=== PATIENT | female | born 1950 | race Caucasian/White ===

== ENCOUNTER 2020-10-28 11:55 | Outpatient (CLI) | payer OTHER | END 2020-10-28 23:59 | disposition home or self-care (01) | LOC: LAB 11:55 | PROVIDERS: ATTEND Student in an Organized Health Care Education/Training Program | DX: Z01.812 Encounter for preprocedural laboratory examination (principal); Z20.822 Contact with and (suspected) exposure to COVID-19 | CPT/HCPCS: 87426; C9803; U0003 ==

== ENCOUNTER 2020-11-01 11:11 | Day surgery (SDC) | payer OTHER ==
[~2020-11-01 11:11] MED LIST: ANESTHESIA TRAY IN PYXIS 1 EA TRAY MC ONE
[2020-11-01] MEDS ORDERED: FENTANYL PF 100MCG/2ML AMPUL ONE (12:33)
[2020-11-01] MEDS ORDERED: BUPIVACAINE 0.25% 75 MG/30 ML VIAL ONE (12:34)
[2020-11-01] MEDS ORDERED: CLINDAMYCIN 900 MG/6 ML VIAL ONE (13:16)
[2020-11-01] MEDS ORDERED: EPINEPHRINE (1:1000) 1 MG/ML AMPUL ONE (14:03)
[2020-11-01] MEDS ORDERED: ESMOLOL INJ 100 MG/10 ML VIAL IV ONE (14:38)
== END 2020-11-01 16:35 | disposition home or self-care (01) ==
LOC: DS 11:11
PROVIDERS: ATTEND Student in an Organized Health Care Education/Training Program
DX: S46.012A Strain of muscle(s) and tendon(s) of the rotator cuff of left shoulder, initial encounter (principal); X58.XXXA Exposure to other specified factors, initial encounter; Y93.89 Activity, other specified; Y92.89 Other specified places as the place of occurrence of the external cause; Y99.8 Other external cause status; M65.812 Other synovitis and tenosynovitis, left shoulder; M94.212 Chondromalacia, left shoulder; I10 Essential (primary) hypertension; E11.9 Type 2 diabetes mellitus without complications; Z88.0 Allergy status to penicillin; Z98.890 Other specified postprocedural states; Z79.899 Other long term (current) drug therapy
CPT/HCPCS: 23430; 29826; 29827; 36415; 82962; A4217; C1713; J0171; J1100; J1885; J2405; J2704; J3490 ×5; J3010

== ENCOUNTER 2021-02-18 12:12 | Outpatient (CLI) | payer OTHER | END 2021-02-18 23:59 | disposition home or self-care (01) | LOC: LAB 12:12 | PROVIDERS: ATTEND Student in an Organized Health Care Education/Training Program | DX: Z75.3 Unavailability and inaccessibility of health-care facilities (principal) ==